=== PATIENT | female | born 1940 | race Caucasian/White ===

== ENCOUNTER → 2016-07-26 | Outpatient (REF) | payer MEDICARE ==
[2016-07-26 11:29] LABS: MEAN CORPUSCULAR HEMOGLOBIN 29.6 pg (27.0-33.0); MEAN CORPUSCULAR HGB CONC 33.1 g/dl (32.0-36.5); MEAN CORPUSCULAR VOLUME 89.4 fl (80.0-96.0); WHITE BLOOD COUNT 7.3 K/mm3 (4.0-10.0)
[2016-07-26 11:50] LABS: ALBUMIN 3.4 GM/DL (3.2-5.2); ALBUMIN/GLOBULIN RATIO 0.92 (1.00-1.93); ALKALINE PHOSPHATASE 87 U/L (45-117); ALT/SGPT 23 U/L (12-78); ANION GAP 6 MEQ/L (8-16); AST/SGOT 17 U/L (15-37); BILIRUBIN,TOTAL 0.9 MG/DL (0.2-1.0); BLOOD UREA NITROGEN 21 MG/DL (7-18); CALCIUM LEVEL 8.6 MG/DL (8.8-10.2); CARBON DIOXIDE LEVEL 32 MEQ/L (21-32); CHLORIDE LEVEL 104 MEQ/L (98-107); CHOLESTEROL LEVEL 186 MG/DL (<200); CREATININE FOR GFR 0.67 MG/DL (0.55-1.02); GLOMERULAR FILTRATION RATE > 60.0 (>39); GLUCOSE, FASTING 98 MG/DL (83-110); POTASSIUM SERUM 4.5 MEQ/L (3.5-5.1); SODIUM LEVEL 142 MEQ/L (136-145); TOTAL PROTEIN 7.1 GM/DL (6.4-8.2); TRIGLYCERIDES LEVEL 206 MG/DL (<150)
== END ==
LOC: M SFHCLERA 09:06
PROVIDERS: ATTEND Physician Assistant
DX: F34.1 Dysthymic disorder (principal); E78.2 Mixed hyperlipidemia; E03.9 Hypothyroidism, unspecified; E55.9 Vitamin D deficiency, unspecified

== ENCOUNTER → 2017-01-25 | Outpatient (REF) | payer MEDICARE ==
[2017-01-25 12:52] LABS: ALBUMIN 3.6 GM/DL (3.2-5.2); ALKALINE PHOSPHATASE 87 U/L (45-117); ALT/SGPT 27 U/L (12-78); ANION GAP 7 MEQ/L (8-16); AST/SGOT 21 U/L (15-37); BLOOD UREA NITROGEN 16 MG/DL (7-18); CARBON DIOXIDE LEVEL 29 MEQ/L (21-32); CHLORIDE LEVEL 106 MEQ/L (98-107); CHOLESTEROL LEVEL 172 MG/DL (<200); CREATININE FOR GFR 0.67 MG/DL (0.55-1.02); GLOMERULAR FILTRATION RATE > 60.0 (>39); GLUCOSE, FASTING 105 MG/DL (83-110); POTASSIUM SERUM 4.4 MEQ/L (3.5-5.1); SODIUM LEVEL 142 MEQ/L (136-145); TOTAL PROTEIN 7.2 GM/DL (6.4-8.2); TRIGLYCERIDES LEVEL 189 MG/DL (<150)
== END ==
LOC: M SFHCLERA 08:11
PROVIDERS: ATTEND Physician Assistant
DX: E78.2 Mixed hyperlipidemia (principal); E03.9 Hypothyroidism, unspecified

== ENCOUNTER → 2017-03-19 | Outpatient (CLI) | payer MEDICARE ==
--- NOTE | 2017-03-19 11:39 | REP ---
Left hip: Two views. History: Pain. Findings: AP and frog-leg views of the left hip demonstrate smooth rounded femoral head and intact hip joint space. There is acetabular and femoral spurring however consistent with arthropathy. No erosive change is seen. Periarticular soft tissues are unremarkable. There are multiple pelvic phleboliths. Impression: Osteoarthritic spurring left hip. Signed by Jarad Albert MD 03/19/2017 03:59 P
--- NOTE | 2017-03-19 11:41 | REP ---
Lumbar spine radiographs: Five views. History: Low back pain. No comparison study. Findings: Lateral views demonstrate preserved vertebral body heights and normal alignment. There is diffuse degenerative disc disease. In the lumbar spine, this is most pronounced at L4-5 where there is a vacuum phenomenon. No malalignment is seen. Pedicles and posterior elements are intact. There is osteoarthritic facet narrowing and sclerosis and hypertrophy bilaterally and at L5-S1. No bony destructive lesion is seen. Sacrum and SI joints are intact. Psoas margins are symmetric. There are surgical clips in the pelvis. Impression: Degenerative spondylosis changes. No acute bony abnormality. Signed by Jarad Albert MD 03/19/2017 03:59 P
== END ==
LOC: M LRY 10:02
PROVIDERS: ATTEND Physician Assistant
DX: M25.752 Osteophyte, left hip (principal); M12.88 Other specific arthropathies, not elsewhere classified, other specified site; M51.36 Other intervertebral disc degeneration, lumbar region

== ENCOUNTER → 2017-07-24 | Outpatient (REF) | payer MEDICARE ==
[2017-07-24 11:30] LABS: HEMATOCRIT 43.2 % (36.0-47.0); HEMOGLOBIN 13.7 g/dl (12.0-15.5); MEAN CORPUSCULAR HEMOGLOBIN 27.9 pg (27.0-33.0); MEAN CORPUSCULAR HGB CONC 31.7 g/dl (32.0-36.5); PLATELET COUNT, AUTOMATED 292 10^3/uL (150-450); RED BLOOD COUNT 4.91 10^6/uL (4.00-5.40); RED CELL DISTRIBUTION WIDTH 13.5 % (11.5-14.5); WHITE BLOOD COUNT 6.8 10^3/uL (4.0-10.0)
[2017-07-24 13:44] LABS: ALBUMIN 3.5 GM/DL (3.2-5.2); ALBUMIN/GLOBULIN RATIO 1.06 (1.00-1.93); ALKALINE PHOSPHATASE 88 U/L (45-117); ALT/SGPT 23 U/L (12-78); ANION GAP 4 MEQ/L (8-16); AST/SGOT 18 U/L (7-37); BILIRUBIN,TOTAL 0.8 MG/DL (0.2-1.0); BLOOD UREA NITROGEN 17 MG/DL (7-18); CALCIUM LEVEL 8.9 MG/DL (8.8-10.2); CARBON DIOXIDE LEVEL 31 MEQ/L (21-32); CHLORIDE LEVEL 109 MEQ/L (98-107); CHOLESTEROL LEVEL 160 MG/DL (<200); CREATININE FOR GFR 0.69 MG/DL (0.55-1.30); GLOMERULAR FILTRATION RATE > 60.0 (>39); GLUCOSE, FASTING 104 MG/DL (70-100); HDL CHOLESTEROL 38 MG/DL (>40); NON-HDL-C 122 MG/DL; POTASSIUM SERUM 4.7 MEQ/L (3.5-5.1); SODIUM LEVEL 144 MEQ/L (136-145); TOTAL PROTEIN 6.8 GM/DL (6.4-8.2); TRIGLYCERIDES LEVEL 145 MG/DL (<150)
== END ==
LOC: M SFHCLERA 08:14
DX: E03.9 Hypothyroidism, unspecified (principal); E78.2 Mixed hyperlipidemia
CPT/HCPCS: 84443

== ENCOUNTER → 2018-02-13 | Outpatient (REF) | payer MEDICARE ==
[2018-02-13 12:37] LABS: ALBUMIN 3.7 GM/DL (3.2-5.2); ALBUMIN/GLOBULIN RATIO 1.16 (1.00-1.93); ALKALINE PHOSPHATASE 84 U/L (45-117); ALT/SGPT 19 U/L (12-78); ANION GAP 7 MEQ/L (8-16); AST/SGOT 21 U/L (7-37); BILIRUBIN,TOTAL 0.9 MG/DL (0.2-1.0); BLOOD UREA NITROGEN 16 MG/DL (7-18); CALCIUM LEVEL 9.5 MG/DL (8.8-10.2); CARBON DIOXIDE LEVEL 29 MEQ/L (21-32); CHLORIDE LEVEL 105 MEQ/L (98-107); GLOMERULAR FILTRATION RATE > 60.0 (>39); GLUCOSE, FASTING 115 MG/DL (70-100); POTASSIUM SERUM 4.2 MEQ/L (3.5-5.1); SODIUM LEVEL 141 MEQ/L (136-145); TOTAL 25(OH) VITAMIN D 26.2 NG/ML (30.0-100.0); TOTAL PROTEIN 6.9 GM/DL (6.4-8.2)
[2018-02-13 18:27] LABS: ESTIMATED AVERAGE GLUCOSE 123 MG/DL (60-110); HEMOGLOBIN A1c 5.9 %
== END ==
LOC: M SFHCLERA 08:04
DX: E78.2 Mixed hyperlipidemia (principal); E66.09 Other obesity due to excess calories; E03.9 Hypothyroidism, unspecified; E55.9 Vitamin D deficiency, unspecified
CPT/HCPCS: 84443

== ENCOUNTER → 2018-08-19 | Outpatient (REF) | payer MEDICARE ==
[2018-08-19 11:55] LABS: ALBUMIN 3.5 GM/DL (3.2-5.2); ALT/SGPT 19 U/L (12-78); BLOOD UREA NITROGEN 22 MG/DL (7-18); CALCIUM LEVEL 8.6 MG/DL (8.8-10.2); CARBON DIOXIDE LEVEL 33 MEQ/L (21-32); CHLORIDE LEVEL 107 MEQ/L (98-107); CHOLESTEROL LEVEL 162 MG/DL (<200); CREATININE FOR GFR 0.73 MG/DL (0.55-1.30); GLOMERULAR FILTRATION RATE > 60.0 (>39); GLUCOSE, FASTING 104 MG/DL (70-100); HDL CHOLESTEROL 40 MG/DL (>40); LDL CHOLESTEROL 90 MG/DL (<100); NON-HDL-C 122 MG/DL; POTASSIUM SERUM 4.7 MEQ/L (3.5-5.1); SODIUM LEVEL 142 MEQ/L (136-145); TOTAL PROTEIN 7.2 GM/DL (6.4-8.2); TRIGLYCERIDES LEVEL 162 MG/DL (<150)
== END ==
LOC: M SFHCLERA 09:20
PROVIDERS: ATTEND Family Medicine
DX: E78.2 Mixed hyperlipidemia (principal); E03.9 Hypothyroidism, unspecified

== ENCOUNTER → 2019-02-09 | Outpatient (REF) | payer MEDICARE ==
[2019-02-09 17:25] LABS: ALBUMIN 3.5 GM/DL (3.2-5.2); ALT/SGPT 15 U/L (12-78); BILIRUBIN,TOTAL 0.9 MG/DL (0.2-1.0); BLOOD UREA NITROGEN 19 MG/DL (7-18); CARBON DIOXIDE LEVEL 30 MEQ/L (21-32); CHLORIDE LEVEL 107 MEQ/L (98-107); CHOLESTEROL LEVEL 181 MG/DL (<200); CHOLESTEROL RISK RATIO 4.209 (<5); GLOMERULAR FILTRATION RATE > 60.0 (>39); GLUCOSE, FASTING 92 MG/DL (70-100); HDL CHOLESTEROL 43 MG/DL (>40); LDL CHOLESTEROL 100 MG/DL (<100); NON-HDL-C 138 MG/DL; POTASSIUM SERUM 4.3 MEQ/L (3.5-5.1); SODIUM LEVEL 142 MEQ/L (136-145); TOTAL PROTEIN 6.9 GM/DL (6.4-8.2); TRIGLYCERIDES LEVEL 189 MG/DL (<150)
== END ==
LOC: M SFHCLERA 12:01
PROVIDERS: ATTEND Family Medicine
DX: E78.2 Mixed hyperlipidemia (principal)

== ENCOUNTER → 2020-03-14 | Outpatient (REF) | payer MEDICARE ==
[2020-03-14 13:34] LABS: APPEARANCE, URINE CLEAR (CLEAR); BACTERIA, URINE AUTO NEGATIVE (NEGATIVE); BILIRUBIN, URINE AUTO NEGATIVE (NEGATIVE); BLOOD, URINE BLOOD 1+ (NEGATIVE); COLOR, URINE YELLOW (YELLOW); GLUCOSE, URINE (UA) AUTO NEGATIVE (NEGATIVE); KETONE, URINE AUTO NEGATIVE (NEGATIVE); LEUKOCYTE ESTERASE, URINE AUTO NEGATIVE (NEGATIVE); MUCUS, URINE SMALL (NEGATIVE); NITRITE, URINE AUTO NEGATIVE (NEGATIVE); PROTEIN, URINE AUTO NEGATIVE (NEGATIVE); RBC, URINE AUTO 2 /HPF (0-3); SPECIFIC GRAVITY URINE AUTO 1.011 (1.002-1.035); SQUAMOUS EPITHELIAL CELL UR AU 1 /HPF (0-6); UROBILINOGEN, URINE AUTO 0.2 mg/dL (0.0-2.0); WBC, URINE AUTO 0 /HPF (0-3)
== END ==
LOC: M SMT 13:07
PROVIDERS: ATTEND Nurse Practitioner Women's Health
DX: R31.0 Gross hematuria (principal)
CPT/HCPCS: 81001; 87086; G0463

== ENCOUNTER 2022-07-25 10:23 | Day surgery (SDC) | payer MEDICARE ==
[~2022-07-25] VITALS: Ht 157.5 cm; Wt 75.7 kg
[~2022-07-25 10:23] MED LIST: LIDOCAINE 2% 100MG/5ML SDV (FOR ANES.) As Ordered ONE; SIMV20TA22 PO; SYNT75TA PO; TUMS500C PO; propofoL 200 MG/20 ML VIAL As Ordered ONE
[2022-07-25] MEDS: NS 1,000 ML IV ONE (10:46)
[2022-07-25] MEDS ORDERED: fentaNYL 100 MCG/2 ML INJECTION As Ordered ONE (11:08)
[2022-07-25 13:01] VITALS: BP 180/65
== END 2022-07-25 13:15 | disposition home or self-care (01) ==
LOC: M OPP 10:23
PROVIDERS: ATTEND Surgery
DX: D12.6 Benign neoplasm of colon, unspecified (principal); K64.9 Unspecified hemorrhoids; K44.9 Diaphragmatic hernia without obstruction or gangrene; K31.89 Other diseases of stomach and duodenum; K30 Functional dyspepsia; R12 Heartburn
CPT/HCPCS: 43239; 45385; 88305; J3010

== ENCOUNTER → 2022-08-01 | Outpatient (CLI) | payer MEDICARE ==
[~2022-08-01] MED LIST changes: +E-Z-GAS II EFFERVESCENT PACKET (SODIUM BICARB./CITRIC ACID/SIMETHICONE) As Ordered ONE; +E-Z-HD 98% w/w 340GM SUSP BTL As Ordered ONE; +E-Z-PAQUE 96% w/w SUSP 176GM BTL As Ordered ONE; -LIDOCAINE 2% 100MG/5ML SDV (FOR ANES.) As Ordered ONE; -propofoL 200 MG/20 ML VIAL As Ordered ONE
== END ==
LOC: M RAD 08:03
PROVIDERS: ATTEND Surgery
DX: K44.9 Diaphragmatic hernia without obstruction or gangrene (principal)

== ENCOUNTER 2022-09-28 06:08 | Inpatient (IN) | payer MEDICARE ==
[~2022-09-28] VITALS: Ht 157.5 cm; Wt 77.4 kg
[~2022-09-28 06:08] MED LIST changes: +CelecoXIB 400 MG CAP PO ONE; -E-Z-GAS II EFFERVESCENT PACKET (SODIUM BICARB./CITRIC ACID/SIMETHICONE) As Ordered ONE; -E-Z-HD 98% w/w 340GM SUSP BTL As Ordered ONE; -E-Z-PAQUE 96% w/w SUSP 176GM BTL As Ordered ONE; +HEPARIN SOD (PORCINE) 5000UNITS/ML 1ML VIAL/SYRINGE SQ ONE; +VIT1TABL25 PO; +ceFAZolin SOD 2 GM in IV 1 EA IV ONE
[2022-09-28] MEDS ORDERED: LR 1,000 ML IV SCH ×2 (06:40→11:05)
[2022-09-28] MEDS ORDERED: ONDANSETRON 4MG 2ML VIAL As Ordered ONE (06:57)
[2022-09-28] MEDS ORDERED: SUGAMMADEX SODIUM 500 MG/5 ML VIAL (BRIDION) As Ordered ONE (06:57)
[2022-09-28] MEDS ORDERED: LIDOCAINE 2% 100MG/5ML SDV (FOR ANES.) As Ordered ONE (06:57)
[2022-09-28] MEDS ORDERED: propofoL 200 MG/20 ML VIAL As Ordered ONE (06:57)
[2022-09-28] MEDS ORDERED: ROCURONIUM BROMIDE 50MG/5ML VIAL As Ordered ONE ×2 (06:57→07:50)
[2022-09-28] MEDS ORDERED: fentaNYL 250 MCG/5 ML INJECTION As Ordered ONE (07:01)
[2022-09-28] MEDS ORDERED: LIDOCAINE 1% SDV 30ML VIAL As Ordered ONE (07:10)
[2022-09-28] MEDS ORDERED: ACETAMINOPHEN 1000MG 100ML IV BAG As Ordered ONE (07:51)
[2022-09-28] MEDS ORDERED: ePHEDrine SULFATE 25 MG/5 ML(5MG/ML) SYRINGE As Ordered ONE (08:01)
[2022-09-28] MEDS ORDERED: LABETALOL 100MG/20ML VIAL As Ordered ONE (08:26)
[2022-09-28] MEDS ORDERED: HOME MED LIST COMPLETE! XX SCH (08:50)
[2022-09-28] MEDS ORDERED: fentaNYL 100 MCG/2 ML INJECTION As Ordered ONE (09:36)
[2022-09-28] MEDS ORDERED: HYDROMORPHONE HCL 0.5 MG/ 0.5 ML SYRINGE IV PRN (11:05)
[2022-09-28] MEDS ORDERED: oxyCODONE 5MG TAB PO PRN (11:05)
[2022-09-28] MEDS ORDERED: ONDANSETRON 4MG 2ML VIAL IV PRN ×2 (11:05→12:00)
[2022-09-28] MEDS ORDERED: fentaNYL 100 MCG/2 ML INJECTION IV PRN (11:05)
[2022-09-28] MEDS ORDERED: hydrALAZINE 20MG/ML 1ML VIAL As Ordered ONE (11:19)
[2022-09-28] MEDS: hydrALAZINE 20MG/ML 1ML VIAL IV PRN ×2 (11:20→11:25)
[2022-09-28] MEDS ORDERED: ACETAMINOPHEN TAB 650MG DOSE (2X325MG) PO PRN (12:00)
[2022-09-28] MEDS ORDERED: PERCOCET 5MG/325MG TAB PO PRN ×2 (12:00)
[2022-09-28 12:15] VITALS: BP 124/54; TEMP 97.2; O2SAT 92
[2022-09-28] MEDS: METOCLOPRAMIDE INJ 10MG/2ML VIAL IV SCH ×3 (12:30→23:19)
[2022-09-28] MEDS: LR 1,000 ML IV SCH ×2 (12:31→20:14)
[2022-09-28] MEDS: KETOROLAC 30 MG/ML 1ML VIAL IV SCH ×3 (12:31→23:19)
[2022-09-28 13:15] VITALS: BP 125/59; TEMP 97.2; O2SAT 93
[2022-09-28 15:15] VITALS: BP 132/58; TEMP 97.3; O2SAT 90
[2022-09-28 16:15] VITALS: BP 135/57; TEMP 97.7; O2SAT 90
[2022-09-28 17:15] VITALS: BP 135/59; TEMP 97.9; O2SAT 94
[2022-09-28] MEDS: CALCIUM CARBONATE 500 MG CHEW U/D PO PRN (20:13)
[2022-09-28] MEDS: SENOKOT S TAB PO SCH (20:13)
[2022-09-28] MEDS ORDERED: SIMVASTATIN 20 MG TAB PO SCH (21:00)
[2022-09-28 21:15] VITALS: BP 112/65; TEMP 98.8; O2SAT 91
[2022-09-29 01:15] VITALS: BP 110/77; TEMP 99; TEMP 99.1; O2SAT 93
[2022-09-29] MEDS: CALCIUM CARBONATE 500 MG CHEW U/D PO PRN (04:13)
[2022-09-29] MEDS: METOCLOPRAMIDE INJ 10MG/2ML VIAL IV SCH ×2 (05:12→12:35)
[2022-09-29] MEDS: KETOROLAC 30 MG/ML 1ML VIAL IV SCH ×2 (05:12→12:35)
[2022-09-29 05:15] VITALS: BP 95/64; TEMP 98.4; O2SAT 90
[2022-09-29] MEDS: LR 1,000 ML IV SCH (05:15)
[2022-09-29] MEDS ORDERED: LEVOTHYROXINE 75MCG TABLET (0.075MG) PO SCH (06:00)
[2022-09-29 06:42] LABS: BASO % 0.2 % (0.0-1.0); EOS % 0.2 % (0.0-3.0); HEMATOCRIT 35.6 % (36.0-47.0); HEMOGLOBIN 11.4 g/dl (12.0-15.5); LYMPH # 1.7 10^3/uL (1.5-5.0); LYMPH % 15.4 % (24.0-44.0); MEAN CORPUSCULAR HEMOGLOBIN 28.5 pg (27.0-33.0); MONO % 8.8 % (2.0-8.0); NEUTROPHILS # 8.4 10^3/uL (1.5-8.5); PLATELET COUNT, AUTOMATED 243 10^3/uL (150-450); WHITE BLOOD COUNT 11.2 10^3/uL (4.0-10.0)
[2022-09-29 07:13] LABS: BLOOD UREA NITROGEN 12 MG/DL (9-23); CALCIUM LEVEL 8.2 MG/DL (8.3-10.6); CARBON DIOXIDE LEVEL 29 MMOL/L (20-31); CHLORIDE LEVEL 107 MMOL/L (98-107); CREATININE FOR GFR 0.68 MG/DL (0.55-1.30); GLOMERULAR FILTRATION RATE > 60.0 (>32); GLUCOSE, FASTING 111 MG/DL (74-106); SODIUM LEVEL 142 MMOL/L (136-145)
[2022-09-29] MEDS: SENOKOT S TAB PO SCH (08:52)
[2022-09-29] MEDS ORDERED: ENOXAPARIN 40MG/0.4ML SYRINGE (J1650 PER 10MG) SC SCH (09:00)
[2022-09-29] MEDS ORDERED: PANTOPRAZOLE 40MG VIAL IV SCH (09:00)
[2022-09-29 09:15] VITALS: BP 106/62; TEMP 98.1; O2SAT 96
[2022-09-29] MEDS ORDERED: PANT40TA29 PO (12:27)
[2022-09-29 14:00] VITALS: BP 118/60; TEMP 98.4; O2SAT 94
== END 2022-09-29 14:59 | disposition home or self-care (01) | DRG 328 ==
LOC: M OR 06:08 → M MSPAV 12:14
PROVIDERS: ADMIT Surgery; ATTEND Surgery
PROC: 8E0W4CZ Robotic Assisted Procedure of Trunk Region, Percutaneous Endoscopic Approach (ICD-10-PCS; 2022-09-28)
PROC: 0DQ54ZZ Repair Esophagus, Percutaneous Endoscopic Approach (ICD-10-PCS; principal; 2022-09-28 07:30)
DX: K44.0 Diaphragmatic hernia with obstruction, without gangrene (principal); K21.9 Gastro-esophageal reflux disease without esophagitis; Z79.899 Other long term (current) drug therapy

== ENCOUNTER 2022-10-04 16:01 | Emergency (ER) | payer MEDICARE ==
[~2022-10-04] VITALS: Ht 157.5 cm; Wt 75.3 kg
[~2022-10-04 16:01] MED LIST changes: -CelecoXIB 400 MG CAP PO ONE; -HEPARIN SOD (PORCINE) 5000UNITS/ML 1ML VIAL/SYRINGE SQ ONE; +PANT40TA29 PO; -ceFAZolin SOD 2 GM in IV 1 EA IV ONE
[2022-10-04] MEDS ORDERED: GASTROGRAFIN SOLUTION 30ML PO ONE (19:10)
[2022-10-04 19:57] LABS: BASO # 0.1 10^3/uL (0.0-0.2); BASO % 0.6 % (0.0-1.0); EOS # 0.2 10^3/uL (0.0-0.5); EOS % 2.1 % (0.0-3.0); HEMATOCRIT 40.6 % (36.0-47.0); HEMOGLOBIN 12.8 g/dl (12.0-15.5); LYMPH # 1.6 10^3/uL (1.5-5.0); LYMPH % 18.8 % (24.0-44.0); MEAN CORPUSCULAR HEMOGLOBIN 28.3 pg (27.0-33.0); MEAN CORPUSCULAR HGB CONC 31.5 g/dl (32.0-36.5); MEAN CORPUSCULAR VOLUME 89.8 fl (80.0-96.0); MONO # 0.8 10^3/uL (0.0-0.8); MONO % 9.4 % (2.0-8.0); NEUTROPHILS % 68.9 % (36.0-66.0); PLATELET COUNT, AUTOMATED 334 10^3/uL (150-450); RED BLOOD COUNT 4.52 10^6/uL (4.00-5.40); WHITE BLOOD COUNT 8.6 10^3/uL (4.0-10.0)
[2022-10-04 20:07] LABS: INR 0.92; PROTHROMBIN TIME 12.6 SECONDS (12.5-14.5)
[2022-10-04 20:08] LABS: PARTIAL THROMBOPLASTIN TIME 24.1 SECONDS (24.8-34.2)
[2022-10-04 20:25] LABS: LIPASE 22 U/L (12-53)
[2022-10-04 20:28] LABS: ALBUMIN 3.3 G/DL (3.2-5.2); ALKALINE PHOSPHATASE 90 U/L (46-116); ALT/SGPT 23 U/L (7.0-40); AST/SGOT < 8 U/L (<34); BILIRUBIN,DIRECT 0.3 MG/DL (<0.4); BLOOD UREA NITROGEN 18 MG/DL (9-23); CALCIUM LEVEL 8.6 MG/DL (8.3-10.6); CARBON DIOXIDE LEVEL 32 MMOL/L (20-31); CHLORIDE LEVEL 109 MMOL/L (98-107); CREATININE FOR GFR 0.56 MG/DL (0.55-1.30); GLOMERULAR FILTRATION RATE > 60.0 (>32); GLUCOSE, FASTING 120 MG/DL (74-106); POTASSIUM SERUM 3.8 MMOL/L (3.5-5.1); SODIUM LEVEL 146 MMOL/L (136-145); TOTAL PROTEIN 6.2 G/DL (5.7-8.2)
[2022-10-04] MEDS ORDERED: MUCI1TAB16 PO (22:32)
[2022-10-04 22:42] VITALS: BP 182/80; TEMP 97.5; O2SAT 96
== END 2022-10-04 22:55 | disposition home or self-care (01) ==
LOC: M ED 16:01
DX: R09.89 Other specified symptoms and signs involving the circulatory and respiratory systems (principal); R10.9 Unspecified abdominal pain; K21.9 Gastro-esophageal reflux disease without esophagitis; E03.9 Hypothyroidism, unspecified; Z79.891 Long term (current) use of opiate analgesic; Z79.899 Other long term (current) drug therapy
CPT/HCPCS: 36415; 71046; 71250; 80047; 80048; 80076; 83605; 83690; 85025; 85610; 85730; 93005; 93041; 99284; Q9963

== ENCOUNTER 2022-10-10 13:26 | Inpatient (IN) | payer MEDICARE ==
[~2022-10-10 13:26] MED LIST changes: +MUCI1TAB16 PO
[2022-10-10] MEDS ORDERED: PANT40TA29 PO (14:29)
[2022-10-10] MEDS ORDERED: FAMO20TA5 PO (14:29)
[2022-10-10 14:30] VITALS: BP 150/82; TEMP 98.1; O2SAT 95
[2022-10-10] MEDS ORDERED: HOME MED LIST COMPLETE! XX SCH (14:30)
[2022-10-10] MEDS: LR 1,000 ML IV SCH (14:49)
[2022-10-10] MEDS: PANTOPRAZOLE 40MG VIAL IV SCH (15:14)
[2022-10-10] MEDS ORDERED: GLUCAGON INJ 1MG VIAL As Ordered ONE (18:13)
[2022-10-10] MEDS ORDERED: hydrALAZINE 20MG/ML 1ML VIAL IV PRN (19:40)
[2022-10-10] MEDS ORDERED: hydrALAZINE 20MG/ML 1ML VIAL As Ordered ONE (19:40)
[2022-10-10] MEDS ORDERED: ROCURONIUM BROMIDE 50MG/5ML VIAL As Ordered ONE (19:46)
[2022-10-10] MEDS ORDERED: LABETALOL 100MG/20ML VIAL As Ordered ONE (19:46)
[2022-10-10] MEDS ORDERED: SUGAMMADEX SODIUM 500 MG/5 ML VIAL (BRIDION) As Ordered ONE (19:46)
[2022-10-10] MEDS ORDERED: propofoL 200 MG/20 ML VIAL As Ordered ONE (19:46)
[2022-10-10] MEDS ORDERED: ONDANSETRON 4MG 2ML VIAL As Ordered ONE (19:46)
[2022-10-10] MEDS ORDERED: LIDOCAINE 2% 100MG/5ML SDV (FOR ANES.) As Ordered ONE (19:46)
[2022-10-10] MEDS ORDERED: fentaNYL 100 MCG/2 ML INJECTION As Ordered ONE (19:46)
[2022-10-10 20:15] VITALS: BP 143/69; TEMP 97.9; O2SAT 96
[2022-10-10 20:45] VITALS: BP 147/65; TEMP 97.5; O2SAT 96
[2022-10-10 21:15] VITALS: BP 150/64; TEMP 97.5; O2SAT 94
[2022-10-10 22:15] VITALS: BP 149/65; TEMP 97.5; O2SAT 95
[2022-10-10 23:15] VITALS: BP 149/66; TEMP 97.3; O2SAT 94
[2022-10-11 00:15] VITALS: BP 145/69; TEMP 97.3; O2SAT 95
[2022-10-11] MEDS: LR 1,000 ML IV SCH ×2 (02:15→16:37)
[2022-10-11 05:15] VITALS: BP 133/63; TEMP 97.7; O2SAT 93
[2022-10-11] MEDS ORDERED: E-Z-GAS II EFFERVESCENT PACKET (SODIUM BICARB./CITRIC ACID/SIMETHICONE) As Ordered ONE (09:06)
[2022-10-11] MEDS ORDERED: E-Z-HD 98% w/w 340GM SUSP BTL As Ordered ONE (09:06)
[2022-10-11] MEDS ORDERED: E-Z-PAQUE 96% w/w SUSP 176GM BTL As Ordered ONE (09:06)
[2022-10-11 09:15] VITALS: BP 135/64; TEMP 98.1; O2SAT 92
[2022-10-11 14:00] VITALS: BP 134/63; TEMP 97.9; O2SAT 95
[2022-10-11] MEDS: PANTOPRAZOLE 40MG VIAL IV SCH (16:36)
[2022-10-11 22:23] VITALS: BP 128/57; TEMP 97.2; O2SAT 96
[2022-10-12] MEDS: LR 1,000 ML IV SCH ×2 (03:15→21:02)
[2022-10-12 05:28] VITALS: BP 130/56; TEMP 97.9; O2SAT 94
[2022-10-12 14:00] VITALS: BP 122/69; TEMP 98.1; O2SAT 95
[2022-10-12] MEDS: PANTOPRAZOLE 40MG VIAL IV SCH (15:43)
[2022-10-12 21:15] VITALS: BP 148/72; TEMP 98.2; O2SAT 98
[2022-10-13] MEDS: ONDANSETRON 4MG 2ML VIAL IV PRN (05:04)
[2022-10-13] MEDS: LR 1,000 ML IV SCH ×3 (05:04→19:45)
[2022-10-13] MEDS ORDERED: LIDOCAINE 2% 100MG/5ML SDV (FOR ANES.) As Ordered ONE (07:55)
[2022-10-13] MEDS ORDERED: propofoL 200 MG/20 ML VIAL As Ordered ONE ×2 (07:55→10:01)
[2022-10-13] MEDS: LEVOTHYROXINE 75MCG TABLET (0.075MG) PO ONE ×2 (09:12→10:15)
[2022-10-13 10:30] VITALS: BP 168/83; TEMP 97.7; O2SAT 95
[2022-10-13 14:00] VITALS: BP 160/78; TEMP 98.1; O2SAT 95
[2022-10-13] MEDS: PANTOPRAZOLE 40MG VIAL IV SCH (14:00)
[2022-10-13 20:45] VITALS: BP 154/72; TEMP 97.9; O2SAT 95
[2022-10-14] MEDS: ONDANSETRON 4MG 2ML VIAL IV PRN (02:00)
[2022-10-14 05:19] VITALS: BP 160/62; TEMP 97.5; O2SAT 96
[2022-10-14] MEDS: METOCLOPRAMIDE INJ 10MG/2ML VIAL IV SCH ×2 (10:49→15:00)
[2022-10-14] MEDS: PANTOPRAZOLE 40MG VIAL IV SCH (15:00)
== END 2022-10-14 15:56 | disposition home or self-care (01) | DRG 392 ==
LOC: ENRESERV 13:29 → M MSPAV 13:54
PROVIDERS: ADMIT Surgery; ATTEND Surgery
PROC: 0D798ZZ Dilation of Duodenum, Via Natural or Artificial Opening Endoscopic (ICD-10-PCS; 2022-10-10)
PROC: 0D768ZZ Dilation of Stomach, Via Natural or Artificial Opening Endoscopic (ICD-10-PCS; principal; 2022-10-10 17:05)
PROC: 0DJ08ZZ Inspection of Upper Intestinal Tract, Via Natural or Artificial Opening Endoscopic (ICD-10-PCS; 2022-10-14)
DX: K22.2 Esophageal obstruction (principal); K31.5 Obstruction of duodenum; K31.9 Disease of stomach and duodenum, unspecified; T18.128A Food in esophagus causing other injury, initial encounter; Z79.899 Other long term (current) drug therapy; Z98.41 Cataract extraction status, right eye; Z98.42 Cataract extraction status, left eye; R13.10 Dysphagia, unspecified

== ENCOUNTER → 2023-04-25 | Outpatient (REF) | payer MEDICARE ==
[~2023-04-25] MED LIST changes: +FAMO20TA5 PO
== END ==
LOC: M LAB REF 09:08
PROVIDERS: ATTEND Nurse Practitioner Family
DX: R19.7 Diarrhea, unspecified (principal)

== ENCOUNTER 2023-06-04 10:41 | Day surgery (SDC) | payer MEDICARE ==
[~2023-06-04] VITALS: Ht 157.5 cm; Wt 66.7 kg
[~2023-06-04 10:41] MED LIST changes: +LEVO88TA3 PO; +NS 1,000 ML IV ONE; +OMEP-173 PO; +[UNRECOGNIZED DRUG - OTHER] PO
[2023-06-04] MEDS ORDERED: LIDOCAINE 2% 100MG/5ML SDV (FOR ANES.) As Ordered ONE (12:21)
[2023-06-04] MEDS ORDERED: propofoL 200 MG/20 ML VIAL As Ordered ONE (12:21)
[2023-06-04 13:36] VITALS: BP 164/70; TEMP 97.2; O2SAT 100
== END 2023-06-04 14:20 | disposition home or self-care (01) ==
LOC: M OPP 10:41
PROVIDERS: ATTEND Internal Medicine Gastroenterology
DX: R13.10 Dysphagia, unspecified (principal); K52.9 Noninfective gastroenteritis and colitis, unspecified; K21.00 Gastro-esophageal reflux disease with esophagitis, without bleeding; K57.30 Diverticulosis of large intestine without perforation or abscess without bleeding; K64.8 Other hemorrhoids; K64.4 Residual hemorrhoidal skin tags; D12.4 Benign neoplasm of descending colon; E89.0 Postprocedural hypothyroidism; E78.00 Pure hypercholesterolemia, unspecified; Z79.890 Hormone replacement therapy; Z79.899 Other long term (current) drug therapy; Z87.891 Personal history of nicotine dependence

== ENCOUNTER → 2023-06-25 | Outpatient (CLI) | payer MEDICARE ==
[~2023-06-25] MED LIST changes: -NS 1,000 ML IV ONE
== END ==
LOC: M PLAIMG 11:00
PROVIDERS: ATTEND Nurse Practitioner Family
DX: R68.81 Early satiety (principal)

== ENCOUNTER → 2023-07-29 | Outpatient (CLI) | payer MEDICARE | LOC: M RAD 07:42 | PROVIDERS: ATTEND Nurse Practitioner Family | DX: R68.81 Early satiety (principal) | CPT/HCPCS: 78264; A9541 ==

== ENCOUNTER → 2023-07-30 | Outpatient (CLI) | payer MEDICARE ==
[~2023-07-30] MED LIST changes: +BARIUM SULFATE 700 MG TABLET (E-Z-DISK) As Ordered ONE; +E-Z-PAQUE 96% w/w SUSP 176GM BTL As Ordered ONE; +VARIBAR NECTAR 40% w/v 240ML SUSP BTL As Ordered ONE; +VARIBAR PUDDING 40% w/v 230ML TUBE As Ordered ONE
== END ==
LOC: M RAD 10:38
PROVIDERS: ATTEND Nurse Practitioner Family
DX: R13.10 Dysphagia, unspecified (principal)

== ENCOUNTER → 2023-12-25 | Outpatient (CLI) | payer MEDICARE ==
[~2023-12-25] MED LIST changes: -BARIUM SULFATE 700 MG TABLET (E-Z-DISK) As Ordered ONE; -E-Z-PAQUE 96% w/w SUSP 176GM BTL As Ordered ONE; +LIDOCAINE 1% MDV 20ML VIAL As Ordered ONE; -VARIBAR NECTAR 40% w/v 240ML SUSP BTL As Ordered ONE; -VARIBAR PUDDING 40% w/v 230ML TUBE As Ordered ONE
[2023-12-25 10:07] VITALS: TEMP 97.6
[2023-12-25 10:51] VITALS: BP 152/66; O2SAT 96
== END ==
LOC: M IRPRO 10:06
PROVIDERS: ATTEND Surgery
DX: C79.89 Secondary malignant neoplasm of other specified sites (principal)